=== PATIENT | male | born 2000 | race Caucasian/White ===

== ENCOUNTER 2020-01-07 08:31 | Emergency (ER) | payer OTHER, SELFPAY ==
[2020-01-07 08:50] VITALS: BP 133/74; PULSE 66; RESP 20; TEMP 37; O2SAT 100
--- NOTE | 2020-01-07 09:02 | ED.SKABFB ---
HPI - Skin/Abscess/Foreign Bdy General Chief complaint: Skin/Abscess/Foreign Body Stated complaint: poison duy Time Seen by Provider: 01/07/20 09:03 Source: patient Mode of arrival: ambulatory Limitations: no limitations History of Present Illness HPI narrative: Carrington Matos is a 19 yo male with no PMH has a rash on legs and arms after cutting weeds 8 days ago. It has continued to spread on arms and ankles with blistering and sloughing of skin. Related Data Allergies Allergy/AdvReac Type Severity Reaction Status Date / Time No Known Allergies Allergy Verified 01/07/20 09:04 Review of Systems Review of Systems: Narrative: CONSTITUTIONAL: Denies fever, chills, sweats. EYES: Denies visual changes, redness, discharge. ENT: Denies rhinorrhea, congestion, sore throat, otalgia. CARDIOVASCULAR: Denies chest pain, palpitations, edema. RESPIRATORY: Denies dyspnea, wheezing, cough GASTROINTESTINAL: Denies abdominal pain, nausea, vomiting, diarrhea. GENITOURINARY: Denies dysuria, hematuria, abnormal discharge SKIN: Rash on torso and all 4 extremities NEUROLOGIC: Denies numbness, or focal weakness. PSYCHIATRIC: Denies anxiety or depression. [facility] Family History Family History Other No active medical problems Social History Social History Smoking status: Never smoker Alcohol intake: current Comments At time of signature, I agree with nursing past medical, surgical, social and family history. There is no relevant family history pertinent to the presenting complaint. Exam Narrative: Exam Narrative: GENERAL: This is a well-nourished, well-developed patient, in mild distress. HEAD: normocephalic, atraumatic. EYES: Sclera clear/white. Vision is grossly intact. EARS: External ears normal, Hearing grossly intact. NOSE: External nose normal without nasal discharge, nares without redness, no rhinorrhea. THROAT: Mucous membranes moist, posterior pharynx NECK: Neck supple, non-tender CARDIOVASCULAR: Regular rate and rhythm without murmurs, gallops, or rubs. RESPIRATORY: Clear to auscultation. Breath sounds equal bilaterally. No wheezes, rales, or rhonchi. GASTROINTESTINAL: Abdomen soft, non-tender, SKIN: warm, intact bilateral ankles are swollen. Vesicles and skin sloughing on left, vesicles on right, maculopapular rash on torso, bilateral arms maculopapular rash with vesicles on the left wrist, no erythema are lesions on face or in mouth NEURO: awake, alert, and oriented to person, place and time. There were no obvious focal neurologic abnormalities. Steady gait EXTREMITIES: Normal range of motion. BACK: Nontender without deformity Course Course Emergency Course: Given Solu-Medrol 125 mg High-dose prednisone taper along with Keflex-hydrocortisone 2 rash-versus given the patient Vital Signs Vital signs: Vital Signs Temperature 98.6 F 01/07/20 08:50 Pulse Rate 66 01/07/20 08:50 Respiratory Rate 20 01/07/20 08:50 Blood Pressure 133/74 01/07/20 08:50 Pulse Oximetry 100 01/07/20 08:50 Temperature 98.6 F 01/07/20 08:50 Pulse Rate 66 01/07/20 08:50 Respiratory Rate 20 01/07/20 08:50 Blood Pressure 133/74 01/07/20 08:50 Pulse Oximetry 100 01/07/20 08:50 MDM - Skin/Abscess/Foreign Bdy Differential Diagnosis Differential diagnosis: Likely urticaria, eczema, insect bites and contact dermatitis Discharge Plan Discharge Clinical Impression: Contact dermatitis Qualifiers: Contact dermatitis type: allergic Contact dermatitis trigger: non-food plants Qualified Code(s): L23.7 - Allergic contact dermatitis due to plants, except food Cellulitis Qualifiers: Site of cellulitis: extremity Site of cellulitis of extremity: lower extremity Laterality: left Qualified Code(s): L03.116 - Cellulitis of left lower limb Patient Disposition: Home, Self-Care Condition: Stable Inst
[2020-01-07] MEDS: methylPREDNISolone SOD SUCC 125 MG VIAL IM (09:10)
== END 2020-01-07 09:40 | disposition home or self-care (01) ==
PROVIDERS: Emergency Provider Nurse Practitioner
DX: L23.7 Allergic contact dermatitis due to plants, except food (principal); L03.116 Cellulitis of left lower limb
CPT/HCPCS: 96372; 99203; G0463; J2930